=== PATIENT | female | born 1930 | race Caucasian/White ===

== ENCOUNTER 2017-10-30 10:08 | Inpatient (IN) | payer BC ==
[~2017-10-30] VITALS: Ht 157.5 cm; Wt 72.6 kg
[~2017-10-30 10:08] MED LIST: ACET-1087 PO; ACET-8386 PO; ASPI81CT PO; DOCU100C16 PO; ERGO2000 PO; ERGO400T PO; FAMO-90 PO; LEVO250T3 PO; METO25TE2 PO; PRAV10TA21 PO
[2017-10-30 10:10] VITALS: BP 151/83
[2017-10-30] MEDS ORDERED: NACL 0.9% 500 ML IV SCH (10:11)
--- NOTE | 2017-10-30 10:20 | NUR ---
PATIENT STILL IN THE [facility],AWAITING FOR A BED. NO DISTRESS WITH PARAMEDICS. BLOOD BEING DRAWN
[2017-10-30 10:41] LABS: BASOPHILS # (AUTO) 0.1 K/uL (0.00-0.22); EOSINOPHILS # (AUTO) 0.1 K/uL (0-0.4); EOSINOPHILS % (AUTO) 0.7 % (0.0-4.0); HEMATOCRIT 36.6 % (36-48); HEMOGLOBIN 12.1 g/dL (12.0-16.0); LYMPHOCYTES # (AUTO) 1.5 K/uL (2.5-16.5); LYMPHOCYTES % (AUTO) 14.3 % (20.5-51.1); MEAN CORPUSCULAR HEMOGLOBIN 29 pg (27-31); MEAN CORPUSCULAR HGB CONC 33 g/dL (33-37); MEAN CORPUSCULAR VOLUME 87 fL (80-94); MONOCYTES % (AUTO) 9.5 % (1.7-9.3); NEUTROPHILS # (AUTO) 7.9 K/uL (1.8-7.7); NEUTROPHILS % (AUTO) 74.5 % (42.2-75.2); PLATELET COUNT (AUTO) 201 K/uL (140-450); RED BLOOD CELL COUNT(AUTO) 4.22 MIL/uL (4.20-5.40); RED CELL DISTRIBUTION WIDTH 13.6 % (11.6-13.7); WHITE BLOOD COUNT (AUTO) 10.6 K/uL (4.8-10.8)
[2017-10-30 11:00] LABS: ALBUMIN 2.9 g/dL (3.4-5.0); ANION GAP 11.9 (8-16); ASPARTATE AMINOTRANSFERASE 16 U/L (15-37); CHLORIDE 106 mmol/L (98-107); CREATININE 0.8 mg/dL (0.6-1.3); GLUCOSE 118 mg/dL (74-106); POTASSIUM 3.9 mmol/L (3.5-5.1); SODIUM SERUM 141 mmol/L (136-145); TOTAL BILIRUBIN 0.5 mg/dL (0.0-1.0); UREA NITROGEN, BLOOD 20 mg/dL (7-18)
[2017-10-30 11:15] LABS: PROTHROMBIN TIME 10.4 secs (10.8-13.4)
--- NOTE | 2017-10-30 11:33 | NUR ---
PATIENT ESCORTEDT TO CT WITH TECH.
--- NOTE | 2017-10-30 12:21 | NUR ---
STRAIGHT CATH DONE BY CHARGE NURSE;PT TOLERATED WELL PROCEDURE.
--- NOTE | 2017-10-30 12:23 | NUR ---
87F [place] FROM [facility] C/O ALTERED LEVEL OF CONSCIOUSNESS AND SHORTNESS OF BREATH X THIS MORNING. PER [facility], PT HAS BEEN HAVING FLU-LIKE SYMPTOMS X 1 WEEK. [facility] STATES PT O2 SATURATION 91% ON ROOM AIR, BUT 97% ON 2L OF OXYGEN. PT AWAKE, ALERT, ON ARRIVAL. HX OF HTN, HYPERLIPIDEMIA;SKIN IS PINK/WARM/DRY; PATIENT POSITIONED FOR COMFORT; HOB ELEVATED; BEDRAILS UP X2; BED DOWN. ALL MONITORS IN PLACED;ER MD MADE AWARE OF PT STATUS.
[2017-10-30] MEDS ORDERED: LEVOFLOXACIN 500 MG/D5W PREMIX 100 ML IV ONE (12:25)
[2017-10-30] MEDS ORDERED: HYDROcodone/APAP 7.5/325 MG 1 TAB PO PRN ×2 (12:50→16:00)
[2017-10-30] MEDS ORDERED: ACETAMINOPHEN 325 MG TAB PO PRN (12:50)
[2017-10-30] MEDS ORDERED: DOCUSATE SODIUM 100 MG GELCAP PO PRN ×2 (12:50→16:00)
[2017-10-30] MEDS ORDERED: ONDANSETRON 4 MG/2 ML VIAL IM/IVP PRN (12:50)
[2017-10-30] MEDS ORDERED: LEVOFLOXACIN 750 MG/D5W PREMIX 150 ML IV SCH (12:55)
[2017-10-30] MEDS ORDERED: NON-FORMULARY ITEM (Ergocalciferol (Vitamin D2) (Vitamin D2) 50,000 IU) PO SCH ×2 (13:20→16:00)
[2017-10-30 13:26] LABS: BILIRUBIN,URINE 1+ (NEGATIVE); COLOR,URINE YELLOW (YELLOW); NITRITE, URINE POSITIVE (NEGATIVE); PH,URINE 5.5 (5.0-9.0); UGLUCOSE NEGATIVE (NEGATIVE)
[2017-10-30 13:35] LABS: APPEARANCE,URINE HAZY (CLEAR); BARBITURATE, URINE NEG. ng/ml (NEG <=200); BENZODIAZEPINE, URINE NEG. ng/mL (NEG <=200); CANNABINOID, URINE NEG. ng/mL (NEG <=50); COCAINE, URINE NEG. ng/mL (NEG <=300); OPIATE, URINE NEG. ng/mL (NEG <=2000); PHENCYCLIDINE SCREEN,URINE NEG. ng/mL (NEG <=25)
[2017-10-30 13:36] LABS: BLOOD, URINE TRACE (NEGATIVE)
[2017-10-30 13:37] LABS: LEUKOCYTE ESTERASE ,URINE 1+ (NEGATIVE); RBC,URINE 0-5 (RARE) /HPF (0-5)
[2017-10-30 13:53] LABS: CHOL/HDL RATIO 2.4 (1-4.5); FREE T4 (FREE THYROXINE) 0.87 ng/dL (0.76-1.46); MAGNESIUM 2.1 mg/dL (1.8-2.4); PHOSPHORUS 3.5 mg/dL (2.5-4.9); THYROID STIMULATING HORMONE 2.66 uIU/mL (0.34-3.74)
--- NOTE | 2017-10-30 14:55 | NUR ---
PT IS IN PENDING ADMISSION BUT THERE IS NO BED YET;
--- NOTE | 2017-10-30 15:04 | NUR ---
called ranjit, toilet and laundry soap supervisor for a tele. bed. will come to er
--- NOTE | 2017-10-30 15:54 | NUR ---
Patient will be admitted to care of [facility]. Admited to . Will go to room. Belongings list completed. Report to .
[2017-10-30 16:00] VITALS: BP 154/78
--- NOTE | 2017-10-30 16:00 | NUR ---
PT ARRIVED ON THE UNIT TRANSPORTED FROM EMERGENCY DEPARTMENT. PT HAS ALOC AT THE MOMENT. PATIENT ONLY ORIENTED TO NAME AND LOCATION. NO S/S OF DISTRESS NOTED. PT ON 2L O2 NC. SKIN IS INTACT. IV LINE NOTED ON THE RIGHT HAND, ASYMPTOMATIC AND INTACT. FALL PRECAUTIONS IN PLACE. PT PLACED NO TELE MONITORING. CALL LIGHT IN REACH AND BED LOWERED. WILL CONTINUE TO MONITOR.
[2017-10-30] MEDS: NACL 0.9% 1,000 ML IV SCH (17:27)
--- NOTE | 2017-10-30 19:30 | NUR ---
RECEIVED PT AAOX2, FORGETFUL WITH PERIOD OF CONFUSION, VITAL SIGNS TAKEN, SLIGHTLY ELEVATED, ASYMPTOMATIC, DENIES ANY PAIN, NO SOB NOTED, WILL GIVE DUE BP MEDICATION, IVF INFUSING WELL, SAFETY MEASURES IN PLACE, REPOSITION Q2H AND OFFLOAD PRESSURE AREAS, CALL LIGHT WITHIN REACH.
--- NOTE | 2017-10-30 19:32 | NUR ---
PATIENT REPORT GIVEN AT BEDSIDE. PATIENT ENDORSED IN STABLE CONDITION
[2017-10-30 20:00] VITALS: BP 160/80
[2017-10-30] MEDS: SIMVASTATIN 10 MG TAB PO SCH (20:30)
[2017-10-30] MEDS: METOPROLOL 25 MG TAB PO SCH (20:30)
[2017-10-30] MEDS: DOCUSATE SODIUM 100 MG GELCAP PO SCH (20:30)
--- NOTE | 2017-10-30 20:40 | NUR ---
DUE PO MEDS TAKEN, WITH REGULAR DIET ORDER, CONSUMED PUDDING AND APPLE JUICE 100% WITH ASSIST, TOLERATED WELL, ALL NEEDS ATTENDED.
[2017-10-30] MEDS ORDERED: DOCUSATE SODIUM 100 MG GELCAP PO SCH (21:00)
[2017-10-30] MEDS ORDERED: METOPROLOL SUCCINATE 50 MG TABER PO SCH (21:00)
[2017-10-31] VITALS: BP 156/77
--- NOTE | 2017-10-31 | NUR ---
PT SLEEPING EASILY AROUSABLE, VITAL SIGNS STABLE, DENIES PAIN, IVF INFUSING WELL, CONTINUE TO MONITOR CLOSELY.
--- NOTE | 2017-10-31 02:10 | NUR ---
INCONTINENT OF URINE, PERINEAL CARE DONE, KEPT SKIN CLEAN AND DRY, CONTINUE TO REPOSITION Q2H AND OFFLOAD PRESSURE AREAS.
[2017-10-31 04:00] VITALS: BP 134/69
[2017-10-31] MEDS: NACL 0.9% 1,000 ML IV SCH (05:30)
[2017-10-31 06:14] LABS: T4 (THYROXINE) 11.3 ug/dL (4.5-12.0)
--- NOTE | 2017-10-31 06:39 | NUR ---
PATIENT HAS BEEN SCREENED AND CATEGORIZED LOW NUTRITION RISK. PATIENT WILL BE SEEN WITHIN 7 DAYS OF ADMISSION. 10/07/17 CASSIDY COBB MS, RDN
--- NOTE | 2017-10-31 07:05 | NUR ---
RECEIVED PATIENT REPORT AT BEDSIDE. PATIENT AWAKE AND ALERT. NO S/S OF DISTRESS NOTED. PATIENT ON 2L O2. PATIENT ON TELE MONITORING. BED LOWERED WITH CALL LIGHT WITHIN REACH. WILL CONTINUE TO MONITOR
--- NOTE | 2017-10-31 07:15 | NUR ---
PT SLEEPING, EASILY AROUSABLE, NO DISTRESS NOTED, REPORT GIVEN TO TANESHA KAN FOR CONTINUITY OF CARE.
[2017-10-31 08:00] VITALS: BP 145/66
[2017-10-31] MEDS: DOCUSATE SODIUM 100 MG GELCAP PO SCH ×2 (09:00→20:06)
[2017-10-31] MEDS ORDERED: NON-FORMULARY ITEM (Pravastatin Sodium* (Pravachol*) 10 MG) PO SCH ×2 (09:00)
[2017-10-31] MEDS ORDERED: ASPIRIN 81 MG PO SCH ×2 (09:00)
[2017-10-31] MEDS ORDERED: FAMOTIDINE 20 MG TAB PO SCH (09:00)
--- NOTE | 2017-10-31 10:00 | NUR ---
ADMINISTERED SCHEDULED MEDICATIONS. PATIENT TOLERATED WELL. PATIENT GIVEN BED BATH. PATIENT TURNED AND REPOSITIONED FOR COMFORT.
[2017-10-31] MEDS: FAMOTIDINE 20 MG TAB PO SCH (10:06)
[2017-10-31] MEDS: METOPROLOL 25 MG TAB PO SCH ×2 (10:06→20:06)
[2017-10-31] MEDS: ASPIRIN 81 MG TAB.CHEW PO SCH (10:06)
[2017-10-31 12:00] VITALS: BP 131/62
[2017-10-31 16:00] VITALS: BP 150/93
[2017-10-31] MEDS ORDERED: LEVOFLOXACIN 750 MG/D5W PREMIX 150 ML IV SCH (16:00)
--- NOTE | 2017-10-31 16:45 | NUR ---
PATIENT ASLEEP IN BED. NO S/S OF DISTRESS NOTED
--- NOTE | 2017-10-31 19:29 | NUR ---
PATIENT REPORT GIVEN AT BEDSIDE. PATIENT ENDORSED IN STABLE CONDITION
--- NOTE | 2017-10-31 19:30 | NUR ---
RECEIVED PT AAOX2, VERBALLY RESPONSIVE, FORGETFUL, VITAL SIGNS TAKEN, BP SLIGHT ELEVATED AND ORAL TEMP-100.2, COOLING MEASURES DONE, WILL GIVE DUE BP MEDICATION, NO SIGNS OF PAIN OR SOB, IVF INFUSING WELL, SAFETY MEASURES IN PLACE, SIDE RAILS UP AND BED ALARM ON, WILL REPOSITION Q2H AND OFFLOAD PRESSURES AREAS, CALL LIGHT WITHIN REACH.
[2017-10-31 20:00] VITALS: BP 160/95
[2017-10-31] MEDS: SIMVASTATIN 10 MG TAB PO SCH (20:06)
[2017-10-31] MEDS ORDERED: ACETAMINOPHEN 325 MG TAB ONE (20:08)
--- NOTE | 2017-10-31 20:10 | NUR ---
DUE MEDS GIVEN, MEDICATED WITH TYLENOL FOR TEMP OF 100.2, PUDDING AND APPLE JUICE GIVEN, TOLERATED WELL, ALL NEEDS ATTENDED.
[2017-11-01] VITALS: BP 158/79
--- NOTE | 2017-11-01 | NUR ---
PT SLEEPING, EASILY AROUSABLE, VITAL SIGNS SLIGHTLY ELEVATED, ASYMPTOMATIC, NO SIGNS OF PAIN OR SOB, IVF INFUSING WELL, REPOSITIONED AND OFFLOAD PRESSURES AREAS, MONITORED CLOSELY.
[2017-11-01 04:00] VITALS: BP 142/69
--- NOTE | 2017-11-01 04:00 | NUR ---
PT SEEN SLEEPING WITH NASAL CANNULA NOT IN PLACE, VITAL SIGNS STABLE, SAT-90% ON ROOM AIR, PUT BACK ON O2, SAT WENT UP TO 96-98%, NO SIGNS OF DISTRESS, MONITORED CLOSELY.
[2017-11-01] MEDS: NACL 0.9% 1,000 ML IV SCH ×2 (05:30→15:33)
--- NOTE | 2017-11-01 07:08 | NUR ---
PT AWAKE NO DISTRESS NOTED, REPORT GIVEN TO TANESHA KNUTSON FOR CONTINUITY OF CARE.
--- NOTE | 2017-11-01 07:26 | NUR ---
RECEIVED PT IN BED. AWAKE. ALERT ORIENTED X2. NO SOB NOTED. ON 02 AT 2LPM NC. DENIES ANY PAIN OR DISCOMFORT AT THIS TIME. NO SIGNS AND SYMPTOMS OF ACUTE PAIN OR DISCOMFORT AT THIS TIME. SAFETY PRECAUTION IN PLACE. CALL LIGHT WITHIN REACH.
[2017-11-01 07:46] LABS: BASOPHILS # (AUTO) 0.1 K/uL (0.00-0.22); BASOPHILS % (AUTO) 0.9 % (0.0-2.0); EOSINOPHILS # (AUTO) 0.2 K/uL (0-0.4); EOSINOPHILS % (AUTO) 2.1 % (0.0-4.0); HEMATOCRIT 32.7 % (36-48); HEMOGLOBIN 10.9 g/dL (12.0-16.0); LYMPHOCYTES # (AUTO) 1.6 K/uL (2.5-16.5); LYMPHOCYTES % (AUTO) 18.3 % (20.5-51.1); MEAN CORPUSCULAR HEMOGLOBIN 29 pg (27-31); MEAN CORPUSCULAR HGB CONC 34 g/dL (33-37); MEAN CORPUSCULAR VOLUME 87 fL (80-94); MONOCYTES # (AUTO) 0.8 K/uL (0.8-1.0); NEUTROPHILS # (AUTO) 6.2 K/uL (1.8-7.7); NEUTROPHILS % (AUTO) 69.7 % (42.2-75.2); PLATELET COUNT (AUTO) 183 K/uL (140-450); RED BLOOD CELL COUNT(AUTO) 3.78 MIL/uL (4.20-5.40); RED CELL DISTRIBUTION WIDTH 13.3 % (11.6-13.7); WHITE BLOOD COUNT (AUTO) 8.9 K/uL (4.8-10.8)
[2017-11-01 07:53] LABS: ANION GAP 8.8 (8-16); CARBON DIOXIDE 29.2 mmol/L (21-32); CHLORIDE 110 mmol/L (98-107); CREATININE 0.8 mg/dL (0.6-1.3); GLUCOSE 98 mg/dL (74-106); SODIUM SERUM 144 mmol/L (136-145); UREA NITROGEN, BLOOD 17 mg/dL (7-18)
[2017-11-01 08:00] VITALS: BP 158/82
[2017-11-01 08:05] LABS: MAGNESIUM 1.8 mg/dL (1.8-2.4); PHOSPHORUS 3.7 mg/dL (2.5-4.9)
[2017-11-01] MEDS: ASPIRIN 81 MG TAB.CHEW PO SCH (08:59)
[2017-11-01] MEDS: DOCUSATE SODIUM 100 MG GELCAP PO SCH ×2 (08:59→20:26)
[2017-11-01] MEDS: FAMOTIDINE 20 MG TAB PO SCH (08:59)
[2017-11-01] MEDS: METOPROLOL 25 MG TAB PO SCH ×2 (08:59→20:26)
[2017-11-01 12:00] VITALS: BP 132/72
--- NOTE | 2017-11-01 13:33 | NUR ---
PT IN BED. NO SOB NOTED. MAINTAINED ON 2LPM NC. NO SIGNS AND SYMPTOMS OF ACUTE PAIN OR DISCOMFORT AT THIS TIME. KEPT COMFORTABLE IN BED. OFFLOAD BONY PROMINENCE.
[2017-11-01 16:00] VITALS: BP 143/78
--- NOTE | 2017-11-01 18:16 | NUR ---
PT KEPT CLEAN, DRY AND COMFORTABLE, NEEDS ATTENDED. NO SOB NOTED. MAINTAINED ON O2 AT 2LPM NC. NO SIGNS AND SYMPTOMS OF ACUTE PAIN OR DISCOMFORT NOTED AT THIS TIME. WILL ENDORSE TO NEXT SHIFT. PT ON STABLE CONDITION. FOR CONTINUITY OF CARE.
--- NOTE | 2017-11-01 19:30 | NUR ---
RECEIVED BEDSIDE REPORT FROM DAY SHIFT NURSE EAMON RN, PT STABLE, NO DISTRESS NOTED, IV TO THE R FA 20 G RUNNING NS @ 30 ML/HR, INFUSING WELL, PT ON 3LPM O2 VIA NC O2 SAT AT 95%, INITIAL ASSESSMENT DONE, ALL SAFETY PRECAUTION MET, WILL CONTINUE TO MONITOR.
[2017-11-01 20:00] VITALS: BP 161/106
[2017-11-01] MEDS: SULFAMETH/TRIMETH DS 800/160MG 1 TAB PO SCH (20:25)
[2017-11-01] MEDS: SIMVASTATIN 10 MG TAB PO SCH (20:26)
--- NOTE | 2017-11-01 20:26 | NUR ---
DUE MEDICATION GIVEN, PT TOLERATED WELL, NO DISTRESS NOTED, CALL LIGHT WITHIN REACH, WILL CONTINUE TO MONITOR.
--- NOTE | 2017-11-01 21:30 | NUR ---
FOUND PATIENT ON NC 3LPM SAO2 97-98% DECREASED LITER FLOW TO 1LPM SAO2 96% RR 14, BS CLEAR
[2017-11-02] VITALS: BP 147/72
--- NOTE | 2017-11-02 | NUR ---
CHECKED ON PT, PT STABLE, NO DISTRESS NOTED, SLEEPING, CALL LIGHT WITHIN REACH, WILL CONTINUE TO MONITOR.
--- NOTE | 2017-11-02 02:51 | NUR ---
CHECKED ON PT, PT SLEEPING, NO DISTRESS NOTED, PT STABLE, ON 1LPM O2 VIA NC, CALL LIGHT WITHIN REACH, WILL CONTINUE TO MONITOR.
[2017-11-02 04:00] VITALS: BP 150/77
--- NOTE | 2017-11-02 05:10 | NUR ---
CHECKED ON PT, PT SLEEPING COMFORTABLY, NO DISTRESS NOTED, CALL LIGHT WITHIN REACH, WILL CONTINUE TO MONITOR.
--- NOTE | 2017-11-02 07:16 | NUR ---
GAVE BEDSIDE REPORT TO DAY SHIFT NURSE GILBERTO ALMENDAREZ, ENDORSED PLAN OF CARE, PT STABLE, NO DISTRESS NOTED, CALL LIGHT WITHIN REACH
--- NOTE | 2017-11-02 07:17 | NUR ---
ENDORSEMENT RECEIVED FROM APPLIED PSYCHOLOGY PROFESSOR NURSE. PATIENT IS SLEEPING COMFORTABLY. RESPIRATION EVEN, UNLABOR. SKIN DRY AND WARM. IV PATENT AND INTACT. NO DISTRESS NOTED. BED AT LOW POSITION, SIDE RAILS UP. CALL LIGHT WITHIN REACH.
[2017-11-02 08:00] VITALS: BP 131/75
[2017-11-02] MEDS: DOCUSATE SODIUM 100 MG GELCAP PO SCH (09:00)
[2017-11-02] MEDS ORDERED: amLODIPine 5 MG TAB PO SCH (09:00)
[2017-11-02] MEDS ORDERED: ERGOCALCIFEROL 50,000 IU SGL PO SCH (09:00)
[2017-11-02] MEDS: METOPROLOL 25 MG TAB PO SCH (09:33)
[2017-11-02] MEDS: FAMOTIDINE 20 MG TAB PO SCH (09:33)
[2017-11-02] MEDS: SULFAMETH/TRIMETH DS 800/160MG 1 TAB PO SCH (09:33)
[2017-11-02] MEDS: ASPIRIN 81 MG TAB.CHEW PO SCH (09:34)
--- NOTE | 2017-11-02 10:30 | NUR ---
PATIENT IS SLEEPING COMFORTABLY. RESPIRATION EVEN, UNLABOR. NO DISTRESS NOTED AT THIS TIME. CALL LIGHT WITHIN REACH.
[2017-11-02 12:00] VITALS: BP 141/75
--- NOTE | 2017-11-02 13:30 | NUR ---
PATIENT IS AWAKE, WAS BEING FED LUNCH BY STAFF. RESPIRATION EVEN, UNLABOR. DENIED PAIN AT THIS TIME. CALL LIGHT WITHIN REACH
--- NOTE | 2017-11-02 16:00 | NUR ---
DISCHARGE INSTRUCTION GIVEN TO THE TRANSPORTER FROM [facility], PATIENT UNABLE TO SIGN. [employer] OFFICER VERBALIZED UNDERSTANDING. PRESCRIPTION WAS GIVEN. IV WAS REMOVED, CATHETER TIP INTACT, NO ACTIVE BLEEDING SEEN, PATIENT TOLERATED WELL. ID BAND WAS REMOVED. EXAMINING OFFICER WAS REMOVED. PATIENT WAS ESCORTED OUT BY THE TRANSPORTER AND STAFF. PATIENT IS STABLE AT THIS TIME.
[2017-11-02] MEDS ORDERED: SULF1TAB12 PO (16:04)
[2017-11-02] MEDS ORDERED: FLOR250 PO (16:05)
--- NOTE | 2017-11-03 16:47 | NUR ---
RECEIVED VM FROM GADIEL AT [facility] REQUESTING CLINICAL INFORMATION ON PT AND LEFT FAX # [phone] AND REF # [id number]
--- NOTE | 2017-11-04 08:18 | NUR ---
RETRO REVIEW.. FAXED ER REPORT, H&P AND DISCHARGE SUMMARY TO [facility] [phone] PHONE NICHOLAS [phone].
== END 2017-11-02 16:00 | DRG 689 ==
LOC: MED 10:08 → MTU 12:53 → MED 15:54
PROVIDERS: ADMIT Family Medicine Sports Medicine; ATTEND Family Medicine Sports Medicine
DX: N39.0 Urinary tract infection, site not specified (principal); N17.0 Acute kidney failure with tubular necrosis; G93.41 Metabolic encephalopathy; E44.0 Moderate protein-calorie malnutrition; I42.2 Other hypertrophic cardiomyopathy; E11.22 Type 2 diabetes mellitus with diabetic chronic kidney disease; E78.5 Hyperlipidemia, unspecified; B96.20 Unspecified Escherichia coli [E. coli] as the cause of diseases classified elsewhere; F03.90 Unspecified dementia, unspecified severity, without behavioral disturbance, psychotic disturbance, mood disturbance, and anxiety; J32.3 Chronic sphenoidal sinusitis; D64.9 Anemia, unspecified; N18.9 Chronic kidney disease, unspecified; I13.10 Hypertensive heart and chronic kidney disease without heart failure, with stage 1 through stage 4 chronic kidney disease, or unspecified chronic kidney disease; Z68.29 Body mass index [BMI] 29.0-29.9, adult; Z79.82 Long term (current) use of aspirin; Z79.899 Other long term (current) drug therapy
CPT/HCPCS: 36415; 70450; 71010; 80048; 80053; 80305; 81001; 83036; 83605; 83735; 83880; 84100; 84436; 84439; 84443; 84479; 84484; 85025; 85610; 85730; 87040; 87081; 87086; 87186; 93005; 96360; 99285; C1758; J1956; J7030